=== PATIENT | male | born 1960 ===

== ENCOUNTER 2018-10-29 13:21 | Outpatient (CLI) | payer OTHER ==
[~2018-10-29 13:21] MED LIST: ASPI-496 PO; FELODIPINE; LISI40TA PO; SIMV20TA3 PO
[2018-10-29] MEDS ORDERED: OMNIPAQUE 350 MG/ML, 100ML BOTTLE ONE (16:25)
== END 2018-10-29 23:59 | disposition home or self-care (01) ==
LOC: CFH 13:21
PROVIDERS: ATTEND Internal Medicine Gastroenterology
DX: C18.4 Malignant neoplasm of transverse colon (principal); J84.9 Interstitial pulmonary disease, unspecified; J92.9 Pleural plaque without asbestos; K80.20 Calculus of gallbladder without cholecystitis without obstruction; M51.37 Other intervertebral disc degeneration, lumbosacral region; E78.00 Pure hypercholesterolemia, unspecified; I10 Essential (primary) hypertension; F17.200 Nicotine dependence, unspecified, uncomplicated; Z88.8 Allergy status to other drugs, medicaments and biological substances; Z72.89 Other problems related to lifestyle
CPT/HCPCS: 71260; 74177; Q9967